=== PATIENT | male | born 1980 | race Two or more races ===

== ENCOUNTER → 2016-10-05 | Day surgery (SDC) | payer OTHER ==
[2016-10-04 14:55] LABS: Basophils # (auto) 0 uL; Basophils % (auto) 0.5 % (0.0-2.0); CONDITION Y; Eosinophils # (auto) 0.2 uL; Eosinophils % (auto) 2.6 % (0.0-7.0); Hemoglobin 16.3 g/dL (13.5-17.5); Lymphocytes # (auto) 2.6 uL; Lymphocytes % (auto) 32.3 % (10.0-50.0); Mean Corpuscular Hemoglobin 30.5 pg (28.0-32.0); Mean Corpuscular Hgb Conc. 33.9 g/dL (32.0-36.0); Mean Corpuscular Volume 89.9 fL (80.0-100.0); Mean Platelet Volume 9.4 fL (7.4-10.4); Monocytes # (auto) 0.4 uL; Monocytes % (auto) 4.9 % (0.0-12.0); Neutrophils # (auto) 4.8 uL; Neutrophils % (auto) 59.7 % (37.0-80.0); Platelet Count (auto) 265 10^3/uL (140-450); Red Cell Distribution Width 13.2 % (11.6-16.0)
[2016-10-04 15:08] LABS: INR 0.99 (0.9-1.15); Partial Thromboplastin Time 30.6 sec (22.64-33.71); Prothrombin Time 10.8 sec (9.37-12.3)
[2016-10-04 15:09] LABS: Urine Bilirubin Negative (Negative); Urine Blood Negative /uL (Negative); Urine Color Yellow (Yellow); Urine Glucose Normal (Normal); Urine Ketone Negative (Negative); Urine Mucus FEW (None Seen); Urine Nitrite Negative (Negative); Urine RBC 1 /hpf (0 - 3); Urine Squamous Epithelial Cell FEW /hpf (<5); Urine Urobilinogen Normal (Negative); Urine pH 5.5 (5.0-8.0)
[2016-10-04 15:31] LABS: Albumin 3.9 g/dL (3.4-5.0); BUN/Creatinine Ratio 21.7; Bilirubin, Total 0.6 mg/dL (0.2-1.0); Calcium 9.1 mg/dL (8.5-10.1); Total Protein 7.7 g/dL (6.4-8.2)
[~2016-10-05] VITALS: Ht 182.9 cm; Wt 121.1 kg
[~2016-10-05] MED LIST: ALBUAER3 IN; BUPIVACAINE 0.25% INJ 50ML VIAL ONE; BUPIVACAINE W/ EPINEPH 0.25% INJ 50ML MDV ONE; DEXAMETHASONE SOD PHOS 10MG/1ML VIAL INJ IV ONE; HYDROmorphone HCL 2 MG/ML VL ONE; LABETALOL HCL 5 MG/ML 4ML SYRINGE IV ONE; LABETALOL HCL 5 MG/ML 4ML SYRINGE IV PRN; LIDOCAINE 1% HCL (LOCAL ANESTH.) INJ 20ML MDV ONE; LIDOCAINE W/ EPINEPHRINE 1 % INJ 30ML ONE; MIDAZOLAM HCL 1MG/1ML-2 ML VIAL IV PRN; MIDAZOLAM HCL 1MG/1ML-2 ML VIAL ONE; ONDANSETRON HCL 4 MG/2 ML VIAL IV ONE; PROPOFOL 10 MG/ML 20 ML IV ONE; ROCURONIUM 10MG/ML 10ML VIAL IV ONE; ceFAZolin 1GM/50ML D5W 50 ML IV ONE; fentaNYL CITRATE 100 MCG/2 ML VL ONE
[2016-10-05] MEDS: HYDROmorphone HCL 2 MG/ML VL IV PRN ×3 (11:22→11:55)
[2016-10-05 12:18] VITALS: BP 118/67
== END | disposition home or self-care (01) ==
LOC: SUR 07:26
PROVIDERS: ATTEND Surgery
DX: K40.90 Unilateral inguinal hernia, without obstruction or gangrene, not specified as recurrent (principal); E66.9 Obesity, unspecified; J45.909 Unspecified asthma, uncomplicated
CPT/HCPCS: 36415; 49505; 80053; 81001; 85025; 85610; 85730; J0690; J1100; J1170; J2250; J2405; J2704; J3010; J3490; J2001